=== PATIENT | female | born 1985 | race Caucasian/White ===

== ENCOUNTER 2020-06-15 05:21 | Inpatient (IN) | payer OTHER ==
[2020-06-15] VITALS (7 sets, daily range): BP systolic 115–132; BP diastolic 59–83
[~2020-06-15] VITALS: Ht 167.6 cm; Wt 91.5 kg
[~2020-06-15 05:21] MED LIST: MULTTAB20 PO
[2020-06-15] MEDS ORDERED: LR 1,000 ML IV ONE (06:00)
[2020-06-15] MEDS ORDERED: LR 1,000 ML IV SCH ×2 (06:00→10:00)
[2020-06-15] MEDS ORDERED: BICITRA 30ML SOLN UDC PO ONE (06:00)
[2020-06-15] MEDS ORDERED: ACETAMINOPHEN 650 MG SUPP PR ONE (06:00)
[2020-06-15] MEDS ORDERED: AZITHROMYCIN INJ 500 MG, VIAL MATE ADAPTER 1 EACH in D5W 250 ML IV ONE (06:00)
[2020-06-15] MEDS ORDERED: ceFAZolin SOD 2 GM in IV 1 EA IV ONE (06:00)
[2020-06-15] MEDS ORDERED: BUPIVACAINE HCL 0.25% 10ML VIAL XX ONE (06:00)
[2020-06-15 06:15] LABS: HEMATOCRIT 37.5 % (36.0-47.0); HEMOGLOBIN 11.8 g/dl (12.0-15.5); MEAN CORPUSCULAR HEMOGLOBIN 27.8 pg (27.0-33.0); MEAN CORPUSCULAR HGB CONC 31.5 g/dl (32.0-36.5); MEAN CORPUSCULAR VOLUME 88.2 fl (80.0-96.0); PLATELET COUNT, AUTOMATED 200 10^3/uL (150-450); RED BLOOD COUNT 4.25 10^6/uL (4.00-5.40); WHITE BLOOD COUNT 11.3 10^3/uL (4.0-10.0)
[2020-06-15] MEDS ORDERED: OXYTOCIN INJ 10 UNITS/ML VIAL (J2590) As Ordered ONE ×2 (07:17→09:06)
[2020-06-15] MEDS ORDERED: MORPHINE PRES-FREE INJ 10 MG/10 ML VIAL (J2274) As Ordered ONE (07:19)
[2020-06-15] MEDS ORDERED: NALOXONE INJ 0.4MG/1ML VIAL (J2310 PER 1MG) IV PRN ×2 (07:59)
[2020-06-15] MEDS ORDERED: NALBUPHINE HCL 10 MG/ML AMP (J2300) IV PRN (07:59)
[2020-06-15] MEDS ORDERED: diphenhydrAMINE 50MG/ML VIAL (J1200) IV PRN (07:59)
[2020-06-15] MEDS ORDERED: ONDANSETRON 4MG/2ML VIAL IV PRN ×2 (07:59→10:00)
[2020-06-15] MEDS ORDERED: METOCLOPRAMIDE INJ 10MG/2ML VIAL (J2765 PER 1) IV PRN ×2 (07:59→10:00)
[2020-06-15] MEDS ORDERED: ONDANSETRON 4MG/2ML VIAL As Ordered ONE (08:26)
[2020-06-15] MEDS ORDERED: dexameTHASONE 4 MG/ML 1ML VIAL (J1100 PER 1MG) As Ordered ONE (08:26)
[2020-06-15] MEDS ORDERED: METOCLOPRAMIDE INJ 10MG/2ML VIAL (J2765 PER 1) As Ordered ONE (08:26)
[2020-06-15 08:37] LABS: CORD GAS ABE A -4.5; CORD GAS HCO3 A 22.3 MEQ/L; CORD GAS PCO2 A 47.5 mmHg; CORD GAS PH A 7.29 UNITS; CORD GAS PO2 A 21.2 mmHg; CORD GAS SBC A 19.4 MEQ/L; CORD GAS TCO2 A 23.8 MEQ/L
[2020-06-15 08:39] LABS: CORD GAS ABE V -3.8; CORD GAS HCO3 V 22.2 MEQ/L; CORD GAS O2 SAT V 71.4 %; CORD GAS PCO2 V 43.2 mmHg; CORD GAS PH V 7.328 UNITS; CORD GAS PO2 V 29.4 mmHg; CORD GAS SBC V 20.7 MEQ/L; CORD GAS TCO2 V 23.5 MEQ/L
[2020-06-15] MEDS ORDERED: PHENYLephrine HCL 500 MCG/5 ML (100MCG/ML) SYRINGE (J2370) As Ordered ONE (08:39)
[2020-06-15] MEDS ORDERED: KETOROLAC 60MG 2ML VIAL As Ordered ONE (09:07)
[2020-06-15] MEDS ORDERED: ACETAMINOPHEN TAB 650MG DOSE (2X325MG) PO PRN (09:45)
[2020-06-15] MEDS ORDERED: IBUPROFEN 600MG TAB PO PRN (09:45)
[2020-06-15] MEDS ORDERED: RHOGAM 300 MCG (1500 IU) INJ (J2790) IM SCH (09:45)
[2020-06-15] MEDS ORDERED: OXYTOCIN DRIP 30 UNITS in IV 1 EA IV ONE (09:45)
[2020-06-15] MEDS ORDERED: OXYTOCIN INJ 10 UNITS/ML VIAL (J2590) IV ONE (09:45)
[2020-06-15] MEDS ORDERED: ANUSOL HC CREAM 30GM TOP PRN (09:45)
[2020-06-15] MEDS ORDERED: MOM 30ML SUSPENSION UDC PO PRN (09:45)
[2020-06-15] MEDS ORDERED: MEASLES,MUMPS,RUBELLA VACCINE INJ (MMR-II) (90707) SC SCH (09:45)
[2020-06-15] MEDS ORDERED: ACETAMINOPHEN 500 MG TAB PO PRN (09:45)
[2020-06-15] MEDS ORDERED: PERCOCET 5MG/325MG TAB PO PRN (10:00)
[2020-06-15] MEDS ORDERED: fentaNYL 100 MCG/2 ML INJECTION (J3010) IV PRN (10:00)
--- NOTE | 2020-06-15 10:22 | RO ---
OPERATIVE NOTE DATE OF OPERATION: 06/15/2020 PREOPERATIVE DIAGNOSIS: Repeat section. POSTOPERATIVE DIAGNOSIS: Repeat section. OPERATION PROPOSED: Repeat section. OPERATION PERFORMED: Repeat section. ANESTHESIA: Spinal plus local anesthetic for intraperitoneal procedures. ESTIMATED BLOOD LOSS: 300 mL. SURGEON: Donaldo Longoria M.D. VEGETABLE PREPARER: Dona Esparza M.D. PROCEDURE: After adequate timeout, prepped and draped in the supine position, Diaz catheter in the bladder draining clear urine, appropriate antibiotics preoperatively, acetaminophen suppository 1300 mg per rectum. Reprepping and draping. A small Pfannenstiel incision was made through the previous one, passing through abdominal layers, securing hemostasis. Mobius was placed with ease. The bladder was high up anteriorly. This was reflected well down caudad. The uterus was slightly rotated to the right. A low transverse incision was made into the uterus and ARM draining clear liquor. We delivered with fundal pressure, live female infant weighing 7 lb, 13 oz, 3540 gm, Apgars of 9 and 9 in 1 and 5 minutes respectively, arterial pH 7.29, base excess minus 4.5, venous pH 7.32, base excess minus 3.8. The uterus spontaneously expelled the placenta, three vessels in the cord, membranes and tissues intact. We swept out the lower and the upper segments of the uterus to contract the uterus well down with Pitocin. The lower segment was oversewn in the usual fashion in two layers, imbricating the second layer. Good hemostasis was secured with instrument and pad count correct and again the uterus well contracted down. The abdomen was closed with running stitch for the peritoneum, the same for the fascia, interrupted for subcu after which we irrigated and Dexon to the skin. Medipore dressing was placed and the patient was sent to recovery in good condition. [facility]
[2020-06-15] MEDS ORDERED: OXYTOCIN 30 UNITS IN 0.9% NaCl 500ML IV BAG (J2590) As Ordered ONE (10:29)
[2020-06-15] MEDS: KETOROLAC 30 MG/ML 1ML VIAL IV SCH ×2 (15:08→20:52)
[2020-06-15] MEDS: DOCUSATE SODIUM 100MG CAPSULE PO PRN (19:50)
[2020-06-16] VITALS (7 sets, daily range): BP systolic 113–129; BP diastolic 62–78
[2020-06-16] MEDS: KETOROLAC 30 MG/ML 1ML VIAL IV SCH (03:49)
[2020-06-16 08:26] LABS: HEMATOCRIT 33.4 % (36.0-47.0); MEAN CORPUSCULAR HEMOGLOBIN 27.6 pg (27.0-33.0); MEAN CORPUSCULAR HGB CONC 29.9 g/dl (32.0-36.5); MEAN CORPUSCULAR VOLUME 92.3 fl (80.0-96.0); PLATELET COUNT, AUTOMATED 168 10^3/uL (150-450); RED BLOOD COUNT 3.62 10^6/uL (4.00-5.40); WHITE BLOOD COUNT 12.3 10^3/uL (4.0-10.0)
--- NOTE | 2020-06-16 09:14 | IPN ---
PROGRESS NOTE DATE: 06/16/2020 SUBJECTIVE: day one. This lady is a 34-year-old 3, now para 2, admitted for repeat section at 39 weeks gestation. Delivered a live female 7 pounds 13 ounces (3540 grams). of 9 and 9 at one and five minutes respectively. Cord around the neck x1. Arterial pH 7.29, base excess -45, venous pH 7.32, base excess -3.8. First day, we discussed phlebitis, cystitis, mastitis, endometritis, cellulitis, diet, exercise, pain management; perineal, breast, and wound care. OBJECTIVE: The rest of examination unremarkable. Normocephalic, atraumatic. Neck with full range of motions. Pupils equal and reactive to light. Distal pulses symmetric. No evidence of DVT, PE, or superficial phlebitis. Chest clear to bilateral bases. No wheezes or rhonchi. No CVA tenderness. Abdomen soft. Four quadrant bowel sounds noted. Uterus two below. Lochia is moderate. The incision has a bandage on it, which is not perforated with blood. Diaz catheter has been removed. The patient is presently . Her blood pressure this morning is 120/66, respirations 16, pulse 109, temperature 97.8. LABORATORY DATA: Admitting hemoglobin 11.8, hematocrit 37.5, and platelets were 200,000. PLAN: The plans are for picking medications up at [facility] in 48 hours. Two week incision check at [facility]. Six week check at which time control will be discussed. All questions were answered, 20 minute discussion. The patient is anxious for discharge tomorrow.
[2020-06-16] MEDS: PRENATAL VITAMINS CHEWABLE TABLET PO SCH (09:29)
[2020-06-16] MEDS: PERCOCET 5MG/325MG TAB PO PRN ×4 (09:45→21:16)
[2020-06-16] MEDS: IBUPROFEN 800 MG TAB PO SCH ×2 (10:46→18:56)
[2020-06-16] MEDS ORDERED: IBUPROFEN 600MG TAB PO PRN (11:00)
[2020-06-16] MEDS: DOCUSATE SODIUM 100MG CAPSULE PO PRN (19:36)
[2020-06-17] MEDS: IBUPROFEN 800 MG TAB PO SCH ×2 (01:59→10:16)
[2020-06-17 02:00] VITALS: BP 111/67
[2020-06-17] MEDS: PERCOCET 5MG/325MG TAB PO PRN ×3 (02:01→10:47)
[2020-06-17 06:00] VITALS: BP 116/56
[2020-06-17] MEDS: PRENATAL VITAMINS CHEWABLE TABLET PO SCH (07:36)
[2020-06-17] MEDS ORDERED: PERCOCET PO (08:08)
[2020-06-17] MEDS ORDERED: IBUP80TA PO (08:08)
--- NOTE | 2020-06-17 08:12 | DS.PDOC ---
Discharge Summary General Date of Admission Jun 15, 2020 at 05:21 Date of Discharge Jun 17, 2020 Discharge Summary HOSPITAL COURSE: Ms. Han is a 34 yo G3 now P2 who underwent an uncomplicated, planned repeat section on 15Jun2020. Her course has been unremarkable. On her day of discharge she met all appropriate discharge criteria. She was ambulating, voiding, tolerating a regular diet, and had minimal lochia. DISCHARGE MEDICATIONS: Please see below. ALLERGIES: Please see below. PHYSICAL EXAMINATION ON DISCHARGE: VITAL SIGNS: Please see below. GENERAL: AAOX3, NAD, pleasant and conversant ABDOMINAL EXAMINATION: Fundus firm at U-2. No fundal tenderness. Bandage in place over incision. clean/dry/intact. EXTREMITIES: No edema PSYCHIATRIC EXAMINATION: Affect appropriate LABORATORY DATA: Please see below. ACTIVITY: Pelvic rest for 6 weeks DIET: Regular diet DISCHARGE PLAN: Discharge home DISPOSITION: Discharge home on 17Jun2020. DISCHARGE INSTRUCTIONS: 1. Pelvic rest for 6 weeks 2. No heavy lifting for 6 weeks ITEMS TO FOLLOWUP ON ON OUTPATIENT: 1. appointment in 6-8 weeks 2. Incision check in 2 weeks DISCHARGE CONDITION: Stable. TIME SPENT ON DISCHARGE: Greater than 20 minutes. Vital Signs/I&Os Vital Signs Date Time Temp Pulse Resp B/P (MAP) Pulse Ox O2 Delivery O2 Flow Rate FiO2 06/17/20 06:23 16 06/17/20 06:00 98.3 86 116/56 (76) 98 Room Air Discharge Medications Scheduled Ibuprofen (Ibuprofen) 800 Mg Tablet, 800 MG PO Q8H No122/Iron/Folic Acid ( Multi Tablet) 1 Each Tablet, 1 TAB PO DAILY, (Reported) Scheduled PRN Oxycodone/Acetaminophen (Oxycodone-Acetaminophen 5-325) 1 Each Tablet, 1 TAB PO Q4H PRN for MILD/MODERATE PAIN (PS 1-7) Allergies Coded Allergies: No Known Allergies (Unverified , 06/08/20) ALENA POOLE DO Jun 17, 2020 08:12
--- NOTE | 2020-06-21 09:49 | HPE ---
HISTORY AND PHYSICAL DATE OF SERVICE: 06/15/2020 HISTORY OF PRESENT ILLNESS: This lady is a 34-year-old 3, para 1, LMP September 16, 2019, EDC June 22, 2020, at 39 weeks of gestation for repeat section. Her risk factors are that she had a previous section, GBS positive, short interval , Rh negative. She was counseled regarding TOLAC, , and she requested a repeat section. PAST HISTORY: 1. March 2019 at 40 and 4/7 weeks, section, male, 8 pounds 7 ounces. 2. July 2015 at 11 weeks, spontaneous . PAST SURGICAL HISTORY: 1. Tonsillectomy and adenoidectomy. 2. section. PAST MEDICAL HISTORY: Unremarkable. ALLERGIES: No known allergies. PHYSICAL EXAMINATION: GENERAL: No distress. Category I strip. heart rate at baseline is 140, moderate variability. VITAL SIGNS: Blood pressure 118/79, respirations 18, pulse 73. Weight 193. Her BMI initially was 29.02. She is 5 feet 5 inches. The rest of the examination is unremarkable. HEENT: Normocephalic atraumatic, neck full range of motion. Pupils equal and reactive to light. EXTREMITIES: Distal pulses are symmetric. No evidence of DVT, PE, or superficial phlebitis. CHEST: Chest is clear bilaterally at the bases. No wheezes or rhonchi. No CVA tenderness. ABDOMEN: Soft, four quadrant bowel sounds noted. Symphysis fundal height is appropriate. SKIN: She has no rashes, lesions, or pruritus. REVIEW OF SYSTEMS: No arthralgia, myalgias. No complaints of joint pain. No complaint of cough, wheezing, shortness of breath, or dyspnea on exertion. No nausea, vomiting, diarrhea, or constipation. No urgency or frequency. PLAN: We discussed the risks and benefits of TOLAC versus repeat section. The patient is requesting a repeat section. Risk factors include hemorrhage, infection, perforation, , reoperation, remote possibility of blood transfusion, remote possibility of hysterectomy for life threatening bleeding issues, remote possibility of admission to the NICU or laceration. The patient expressed understanding of all of the risks involved, twenty minute discussion, all questions were answered, signed the consent form. We await anesthesia consultation. The patient requested that the announce the sex of the baby and these wishes will hopefully be respected. [facility]
== END 2020-06-17 15:10 | disposition home or self-care (01) | DRG 773 ==
LOC: M LDI 05:21 → M OBS 10:38
PROVIDERS: ADMIT Obstetrics & Gynecology; ATTEND Obstetrics & Gynecology
PROC: 10D00Z1 Extraction of Products of Conception, Low, Open Approach (ICD-10-PCS; principal; 2020-06-15 07:30)
DX: O34.211 Maternal care for low transverse scar from previous cesarean delivery (principal); Z3A.39 39 weeks gestation of pregnancy; O99.824 Streptococcus B carrier state complicating childbirth; Z37.0 Single live birth; O69.81X0 Labor and delivery complicated by cord around neck, without compression, not applicable or unspecified